=== PATIENT | female | born 1975 | race Two or more races ===

== ENCOUNTER 2020-08-01 20:42 | Emergency (ER) | payer SELFPAY ==
[~2020-08-01] VITALS: Ht 165.1 cm; Wt 45.0 kg
[2020-08-01 20:48] VITALS: BP 136/78
== END 2020-08-01 22:00 | disposition left against medical advice (07) ==
LOC: ER 20:42
DX: R11.10 Vomiting, unspecified (principal); R63.0 Anorexia; Z53.21 Procedure and treatment not carried out due to patient leaving prior to being seen by health care provider